=== PATIENT | male | born 1935 | race Caucasian/White ===

== ENCOUNTER → 2020-01-31 09:12 | Outpatient (BNVA) | payer MEDICARE, OTHER, SELFPAY | PROVIDERS: Family Provider Family Medicine; PCP Family Medicine; Visit Provider Family Medicine | DX: E03.9 Hypothyroidism, unspecified (principal); I48.91 Unspecified atrial fibrillation; Z13.6 Encounter for screening for cardiovascular disorders | CPT/HCPCS: 80053; 80061; 84443; 85025; 85610 ==

== ENCOUNTER → 2020-11-26 09:41 | Outpatient (BNVA) | payer MEDICARE, OTHER, SELFPAY | PROVIDERS: Family Provider Family Medicine; PCP Family Medicine; Referring Provider Dermatology; Visit Provider Podiatrist Foot & Ankle Surgery | DX: M79.671 Pain in right foot (principal); M20.41 Other hammer toe(s) (acquired), right foot | CPT/HCPCS: 73630 ==

== ENCOUNTER → 2020-12-31 15:13 | Outpatient (BNVA) | payer MEDICARE, OTHER, SELFPAY | PROVIDERS: Family Provider Family Medicine; PCP Family Medicine; Visit Provider Family Medicine | DX: E03.9 Hypothyroidism, unspecified (principal); I48.91 Unspecified atrial fibrillation; N40.0 Benign prostatic hyperplasia without lower urinary tract symptoms; Z13.6 Encounter for screening for cardiovascular disorders | CPT/HCPCS: 80053; 80061; 84153; 84443; 85025 ==

== ENCOUNTER → 2021-01-23 14:42 | Outpatient (BNVA) | payer MEDICARE, OTHER, SELFPAY | PROVIDERS: Family Provider Family Medicine; PCP Family Medicine; Visit Provider Family Medicine | DX: I48.91 Unspecified atrial fibrillation (principal) | CPT/HCPCS: 85610 ==

== ENCOUNTER → 2021-03-05 08:32 | Outpatient (BNVA) | payer MEDICARE, SELFPAY | PROVIDERS: Family Provider Family Medicine; PCP Family Medicine; Visit Provider Urology | DX: N40.0 Benign prostatic hyperplasia without lower urinary tract symptoms (principal) | CPT/HCPCS: 81003 ==

== ENCOUNTER → 2021-03-08 14:23 | Outpatient (BNVA) | payer MEDICARE, SELFPAY | PROVIDERS: Family Provider Family Medicine; PCP Family Medicine; Visit Provider Family Medicine | DX: I48.91 Unspecified atrial fibrillation (principal) | CPT/HCPCS: 85610 ==

== ENCOUNTER → 2021-06-04 15:08 | Outpatient (BNVA) | payer MEDICARE, SELFPAY | PROVIDERS: Family Provider Family Medicine; PCP Family Medicine; Visit Provider Internal Medicine Cardiovascular Disease | DX: I48.91 Unspecified atrial fibrillation (principal); R06.02 Shortness of breath; E03.9 Hypothyroidism, unspecified; N40.0 Benign prostatic hyperplasia without lower urinary tract symptoms; I87.2 Venous insufficiency (chronic) (peripheral); Z79.01 Long term (current) use of anticoagulants; Z79.82 Long term (current) use of aspirin; I45.10 Unspecified right bundle-branch block | CPT/HCPCS: 93005; 99214 ==

== ENCOUNTER 2021-08-13 06:48 | Outpatient (CLI) | payer MEDICARE, SELFPAY ==
[2021-08-13 07:56] VITALS: BMI 32.1
--- NOTE | 2021-08-13 07:58 | ECG_ITS ---
[facility] Test Date: 2021-08-13 Pat Name: Kwame So Department: Room: Gender: Male Work From Home: Shy Nicole : 1935 Requested By: America Ch Order Number: [id number] Nohemi MD: Ezra Salazar M.D. Interpretive Statements NAME OF STUDY: EXERCISE SESTAMIBI STRESS TEST INDICATION: Chest Pain, PROCEDURE: The baseline electrocardiogram showed [normal sinus rhythm with right bundle branch block. Some nonspecific ST-T changes. At the baseline, the patient's blood pressure was 146/67 mm Hg with a heart rate of 99. The patient exercised for 4 minutes and 14 seconds on a standard Yusuf protocol. Patient attained a maximum heart rate of 137 beats per minute(91 % of the maximum predicted heart rate) with a blood pressure at the peak exercise of 110/89 mm Hg. The EKG at the peak exercise revealed no significant changes. Patient did not have any chest pain or any significant arrhythmis with the exercise Sestamibi was injected 1 minute prior to the peak exercise During the recovery phase, there were no new changes. Blood pressure at the end of the recovery phase was 146/84 mm Hg with a heart rate of 90 per minute. CONCLUSION: 1. No significant EKG changes with the [treadmill exercise 2. No exercise-induced chest pain or cardiac arrhythmia 3. Impaired exercise tolerance, attained a maximum of 6.6 METs 4. Sestamibi/Sestamibi perfusion results pending; see separate report. Electronically Signed On 08-16-2021 11:31:55 CDT by Ezra Salazar M.D. [email or web address]
--- NOTE | 2021-08-13 07:59 | NMCV_ITS ---
NM tanisha perf SPECT r/s* [id number] Kwame So Age: 85 Gender: M : 1935 Exam Date: 08/13/2021 08:21 Ordering Phys: America Ch MD ([email or web address]) Technologist: EMILY Shane Exam Location: [facility] Indications: CHEST PAIN STRESS TEST Please see separate stress test report in [facility] for full findings IMAGE PROTOCOL Rest/Stress 1 Exercise Day Radiopharmaceutical Dose (mCi) Administration Site Administered by Rest: Tc-99m 10.9 IV EMILY Shane Sestamibi Stress:Tc-99m 33.0 IV EMILY Shane Sestamibi Rest: 13-Aug-2021 60 Discovery 630 Stress: 13-Aug-2021 30 Discovery 630 Images obtained in supine and prone position.Radiopharmaceutical was injected at 85 % maximum heart rate. SPECT RESULTS Technical Quality: Excellent Raw Data Analysis: Normal Image Corrections: No attenuation or motion correction applied Summed Stress Score: 2 Summed Rest Score: 3 Summed Difference Score: 1 PERFUSION FINDINGS Small size perfusion abnormality of mild severity of apical lateral wall on rest images with reversibility in mid inferolateral apical lateral and apical garsia on supine stress images. Prone images with improved tracer uptake in inferolateral and apical garsia. This is suggestive of attenuation artifact. FUNCTIONAL RESULTS (calculated via Gated SPECT) Stress Image LV EF (%): 81 Stress EDV (mL):77 TID: 0.96 Stress ESV (mL):15 FUNCTIONAL FINDINGS: The left ventricle is normal in size. Transient Ischemia Dilatation of 0.96. The left ventricular ejection fraction is normal with a value of 81%. There is normal left ventricular wall thickening. IMPRESSIONS 1. Myocardial perfusion imaging is normal. Diaphragmatic attenuation artifact noted in mid inferolateral and apical lateral garsia. 2. Overall left ventricular systolic function is normal without regional wall motion abnormalities, LVEF=81%. 3. EKG portion of the study will be reported separately. 4. Scan indicates low risk for cardiac events. America Ch MD (Electronically Signed) Final Date: 15 August 2021 09:55 S
[2021-08-13 10:29] VITALS: BP 146/84; PULSE 90
== END 2021-08-13 06:49 | disposition home or self-care (01) ==
LOC: CDL 06:56
PROVIDERS: Family Provider Family Medicine; PCP Family Medicine; Visit Provider Internal Medicine Cardiovascular Disease
DX: R07.9 Chest pain, unspecified (principal)
CPT/HCPCS: 78452; 93017; A9500

== ENCOUNTER 2021-10-17 12:19 | Outpatient (CLI) | payer MEDICARE, SELFPAY ==
--- NOTE | 2021-10-17 12:33 | XR_ITS ---
WS: [id number] Right knee, 3 views, 10/17/2021 Clinical Data: acute knee pain Comparison: None. Findings: No fractures or dislocations are seen. The joint spaces are normal. The patella is intact. The soft t issues are unremarkable. XR/XR knee RT 3V* [id number] Impression: Negative right knee. Kellgren-John Classification: grade 0 (none): definite absence of x-ray lino nges of osteoarthritis
== END 2021-10-17 12:20 | disposition home or self-care (01) ==
LOC: RAD 12:24
PROVIDERS: PCP Family Medicine; Visit Provider Family Medicine
DX: M25.561 Pain in right knee (principal)
CPT/HCPCS: 73562

== ENCOUNTER → 2021-10-30 14:00 | Outpatient (BNVA) | payer MEDICARE, SELFPAY | PROVIDERS: PCP Family Medicine; Visit Provider Family Medicine | DX: I48.20 Chronic atrial fibrillation, unspecified (principal) | CPT/HCPCS: 85610 ==

== ENCOUNTER → 2021-12-09 14:35 | Outpatient (BNVA) | payer MEDICARE, SELFPAY | PROVIDERS: PCP Family Medicine; Visit Provider Internal Medicine Cardiovascular Disease | DX: I48.91 Unspecified atrial fibrillation (principal); Z79.01 Long term (current) use of anticoagulants | CPT/HCPCS: 99213; 99214 ==

== ENCOUNTER → 2022-07-18 10:39 | Outpatient (BNVA) | payer MEDICARE, SELFPAY | PROVIDERS: PCP Family Medicine; Visit Provider Family Medicine | DX: I48.91 Unspecified atrial fibrillation (principal) | CPT/HCPCS: 85610 ==

== ENCOUNTER → 2022-08-12 14:55 | Outpatient (BNVA) | payer MEDICARE, SELFPAY | PROVIDERS: PCP Family Medicine; Visit Provider Surgery | DX: Z86.010 Personal history of colon polyps (principal); K92.1 Melena | CPT/HCPCS: 99203 ==

== ENCOUNTER 2022-09-10 08:59 | Day surgery (SDC) | payer MEDICARE, SELFPAY ==
[2022-09-09 14:14] VITALS: BMI 30.8
[2022-09-10 09:33] VITALS: BP 167/83; PULSE 75; RESP 18; TEMP 36.3; O2SAT 96
[2022-09-10] MEDS: sodium chloride 0.9% 1,000 ML 30 ML IV (09:35)
--- NOTE | 2022-09-10 10:49 | ANES.PREANE2 ---
Pre-Anesthetic Assessment Height/Weight: Height 1.88 m Weight 108.862 kg Temp Pulse Resp BP Pulse Ox O2 Del Method 97.3 F L 75 18 167/83 96 Room Air 09/10/22 09:33 09/10/22 09:33 09/10/22 09:33 09/10/22 09:33 09/10/22 09:33 09/10/22 09:33 Preop Diagnosis: Hematochezia, Hx of colon polyps Operation Date: 09/10/22 10:30 Proposed Procedures p Colonoscopy 99619,Z86.010 , K92.1(Not Applicable) - Delta Saini DO Familial anesthetic complications: none Last intake: Intake Last Liquid Date 09/09/22 Last Liquid Time 23:30 Last Solid Date 09/08/22 Last Solid Time 17:00 Social No alcohol and No tobacco Exam alert, oriented x 3 and clear to auscultation bilaterally Airway Submandibular: within normal limits Cervical ROM: within normal limits Mallampati: Class I Dentition: full Pulmonary None reported CV/HEM Atrial Fibrillation and Hypertension None reported Hepatic None reported GI Gastroesophageal Reflux Disease Metabolic Morbid Obesity [facility] None reported Neuropsych None reported Anesthetic Plan ASA status: 3 Medications/Allergies Home Medications Medication Instructions Recorded Confirmed Last Taken Type ascorbic acid (vitamin C) 500 mg 500 mg PO DAILY 04/13/19 09/09/22 09/09/22 History capsule aspirin 81 mg tablet,delayed 81 mg PO DAILY 04/13/19 09/09/22 09/09/22 History release (Adult Low Dose Aspirin) folic acid 800 mcg tablet 0.8 mg PO DAILY 04/13/19 09/09/22 09/09/22 History lutein 20 mg capsule 20 mg PO DAILY 04/13/19 09/09/22 09/09/22 History multivitamin 1 tab PO DAILY 04/13/19 09/09/22 09/09/22 History omega-3 fatty acids 1,000 mg 1,000 mg PO DAILY 04/13/19 09/09/22 09/09/22 History capsule (Fish Oil Concentrate) biotin 5,000 mcg disintegrating 10,000 mcg PO DAILY 03/05/21 09/09/22 09/09/22 History tablet warfarin 4 mg tablet 4 mg PO DAILY #90 tabs 10/30/21 09/09/22 09/04/22 Rx digoxin 125 mcg (0.125 mg) tablet 125 mcg PO DAILY #90 tabs 01/20/22 09/09/22 09/09/22 Rx metoprolol succinate 25 mg 25 mg PO DAILY #90 tabs 02/04/22 09/09/22 09/09/22 Rx tablet,extended release 24 hr levothyroxine 25 mcg tablet 25 mcg PO DAILY #90 tabs 06/27/22 09/09/22 09/09/22 Rx terazosin 5 mg capsule 5 mg PO DAILY 09/09/22 09/09/22 09/09/22 History Allergies Allergy/AdvReac Type Severity Reaction Status Date / Time No Known Allergies Allergy Verified 07/18/22 08:15 Current Medications Generic Name Dose Route Start Last Admin Trade Name Yuryq PRN Reason Stop Dose Admin Sodium Chloride 1,000 mls @ 30 mls/hr 09/10/22 09:15 09/10/22 09:35 Sodium Chloride 0.9% IV 09/11/22 09:14 30 mls/hr .Q24H REYNALDO Administration PFSH Anesthesia Medical History Atrial fibrillation Hypothyroidism Venous reflux Surgical History History of prostate surgery tumor removal S/P appendectomy S/P cataract surgery bilateral S/P cholecystectomy S/P correction of deviated nasal septum S/P hammer toe correction right foot S/P hip replacement bilateral S/P skin biopsy S/P tonsillectomy Family History Mother , in her 90's Stroke Father , in his 90's Pneumonia Social History Smoking and tobacco status: never smoked Alcohol intake: current Alcohol intake frequency: holidays/special occasions only Marital status: Current occupational status: retired Data Anesthesia Cardiac Studies: Sestamibi Stress Test (Cardiology) 08/13/21
--- NOTE | 2022-09-10 11:35 | W.PM.OPSUD ---
Surgery/Procedure H&P Update DATE OF PROCEDURE: September 10, 2022 DATE H&P PERFORMED: 08/12/22 H&P UPDATE INFORMATION: I have reviewed H&P completed within last 30 days, I have examined patient prior to procedure and No changes to prior documentation PREOP DIAGNOSIS: Hematochezia, Hx of colon polyps PLANNED PROCEDURE: Operation Date: 09/10/22 10:30 Proposed Procedures p Colonoscopy 38827,Z86.010 , K92.1(Not Applicable) - Delta Saini DO
[2022-09-10 12:00] VITALS: BP 118/70; PULSE 61; RESP 20; TEMP 36.1; O2SAT 93
[2022-09-10 12:10] VITALS: BP 120/75; PULSE 60; RESP 20; O2SAT 96
[2022-09-10 12:18] VITALS: BP 158/93; PULSE 68; RESP 20; O2SAT 96
--- NOTE | 2022-09-10 14:58 | ANE.PACU2 ---
Inpatient post-anesthesia follow up: Airway intact: Yes Vital signs: Temperature 97.0 F Pulse Rate 68 Respiratory Rate 20 Blood Pressure 158/93 Pulse Oximetry 96 Oxygen Delivery Me thod Room Air Oxygen Flow Rate 4 Fraction of Inspir ed Oxygen Hydration adequate: Yes Nausea and vomiting: No Pain level: 2 Mental status: Baseline
== END 2022-09-10 12:41 | disposition home or self-care (01) ==
PROVIDERS: PCP Family Medicine; Visit Provider Surgery
PROC: 0DJD8ZZ Inspection of Lower Intestinal Tract, Via Natural or Artificial Opening Endoscopic (ICD-10-PCS; CPT 45378; principal; 2022-09-10 10:30)
DX: K92.1 Melena (principal); Z86.010 Personal history of colon polyps; I48.91 Unspecified atrial fibrillation; I10 Essential (primary) hypertension; K21.9 Gastro-esophageal reflux disease without esophagitis; Z79.82 Long term (current) use of aspirin; Z79.01 Long term (current) use of anticoagulants; E03.9 Hypothyroidism, unspecified; K57.30 Diverticulosis of large intestine without perforation or abscess without bleeding
CPT/HCPCS: 45378; J2704; J7030

== ENCOUNTER → 2022-10-30 09:15 | Outpatient (BNVA) | payer MEDICARE, SELFPAY | PROVIDERS: PCP Family Medicine; Visit Provider Nurse Practitioner Family | DX: L57.0 Actinic keratosis (principal); L82.0 Inflamed seborrheic keratosis; L81.4 Other melanin hyperpigmentation; D22.5 Melanocytic nevi of trunk; L85.3 Xerosis cutis; L57.8 Other skin changes due to chronic exposure to nonionizing radiation; L92.0 Granuloma annulare; S30.861A Insect bite (nonvenomous) of abdominal wall, initial encounter; L82.1 Other seborrheic keratosis; Y99.9 Unspecified external cause status | CPT/HCPCS: 17000; 17003; 17110; 99214 ==

== ENCOUNTER → 2022-12-08 13:48 | Outpatient (BNVA) | payer MEDICARE, SELFPAY | PROVIDERS: PCP Family Medicine; Visit Provider Internal Medicine Cardiovascular Disease | DX: I48.11 Longstanding persistent atrial fibrillation (principal); Z79.01 Long term (current) use of anticoagulants | CPT/HCPCS: 85610; 99214 ==

== ENCOUNTER → 2023-01-21 09:28 | Outpatient (BNVA) | payer MEDICARE, SELFPAY | PROVIDERS: PCP Family Medicine; Visit Provider Nurse Practitioner Family | DX: L57.8 Other skin changes due to chronic exposure to nonionizing radiation (principal); L81.4 Other melanin hyperpigmentation; D22.62 Melanocytic nevi of left upper limb, including shoulder; L82.0 Inflamed seborrheic keratosis | CPT/HCPCS: 17110; 99213 ==

== ENCOUNTER → 2023-03-19 15:14 | Outpatient (BNVA) | payer MEDICARE, SELFPAY | PROVIDERS: PCP Family Medicine; Visit Provider Family Medicine | DX: Z13.6 Encounter for screening for cardiovascular disorders (principal); E03.9 Hypothyroidism, unspecified; I48.11 Longstanding persistent atrial fibrillation; Z11.59 Encounter for screening for other viral diseases; N40.0 Benign prostatic hyperplasia without lower urinary tract symptoms | CPT/HCPCS: 80053; 80061; 84443; 85025; 85610; 86803 ==

== ENCOUNTER → 2023-07-16 09:54 | Outpatient (BNVA) | payer MEDICARE, SELFPAY | PROVIDERS: PCP Family Medicine; Visit Provider Nurse Practitioner Family | DX: L57.0 Actinic keratosis (principal); L57.8 Other skin changes due to chronic exposure to nonionizing radiation; L81.4 Other melanin hyperpigmentation; D22.62 Melanocytic nevi of left upper limb, including shoulder; L82.0 Inflamed seborrheic keratosis | CPT/HCPCS: 17000; 17110; 99213 ==

== ENCOUNTER 2023-11-16 10:27 | Outpatient (CLI) | payer MEDICARE, SELFPAY ==
--- NOTE | 2023-11-16 10:39 | XRR_ITS ---
PROCEDURE INFORMATION: Exam: XR Left Shoulder Exam date and time: 11/16/2023 10:44 AM Age: 87 years old Clinical indication: Left; Patient HX: --pain lt shoulder, HX of dislocations; Additional info: Left shoulder pain TECHNIQUE: Imaging protocol: Radiologic exam of the left shoulder. Views: 2 or more views. COMPARISON: No relevant prior studies available. FINDINGS: Bones/joints: Glenohumeral and acromioclavicular alignment is normal. There is severe glenohumeral joint space narrowing with bulky inferior humeral and glenoid osteophytes. There is a 2.7 x 1.2 cm focus of peripherally sclerotic bone along the inferior margin of the large humeral osteophyte. The AC joint is unremarkable. No acute fracture. There is remodeling of the humeral head and glenoid with mild flattening of the articular surfaces. Soft tissues: Visible soft tissues are unremarkable. XR/XR shoulder LT min 2V* [id number] IMPRESSION: 1. No acute findings. 2. Severe glenohumeral osteoarthritis. 3. 2.7 x 1.5 cm osseous body inferior to a large humeral osteophyte. Heterotopic ossification in the soft tissues versus osteochondral intra-articular loose body.
[2023-11-16 11:44] LABS: INR 2.29 (0.8-1.2)
[2023-11-16 12:01] LABS: Free T4 Free Thyroxine 1.28 ng/dL (0.82-1.77); Thyroid Stimulating Hormone 5.95 uIU/mL (0.27-4.20)
== END 2023-11-16 10:28 | disposition home or self-care (01) ==
PROVIDERS: PCP Family Medicine; Visit Provider Pediatrics
DX: E03.9 Hypothyroidism, unspecified (principal); I48.11 Longstanding persistent atrial fibrillation; M19.012 Primary osteoarthritis, left shoulder; M25.712 Osteophyte, left shoulder
CPT/HCPCS: 36415; 73030; 84439; 84443; 85610

== ENCOUNTER → 2023-11-25 14:16 | Outpatient (BNVA) | payer MEDICARE, SELFPAY | PROVIDERS: PCP Family Medicine; Visit Provider Specialist | DX: M19.012 Primary osteoarthritis, left shoulder (principal) | CPT/HCPCS: 20610; 99204 ==

== ENCOUNTER → 2023-12-17 16:17 | Outpatient (BNVA) | payer MEDICARE, SELFPAY | PROVIDERS: PCP Family Medicine; Visit Provider Internal Medicine Cardiovascular Disease | DX: I48.11 Longstanding persistent atrial fibrillation (principal); I87.2 Venous insufficiency (chronic) (peripheral); Z79.4 Long term (current) use of insulin | CPT/HCPCS: 99204 ==

== ENCOUNTER → 2024-01-18 10:09 | Outpatient (BNVA) | payer MEDICARE, SELFPAY | PROVIDERS: PCP Family Medicine; Visit Provider Nurse Practitioner Family | DX: D23.39 Other benign neoplasm of skin of other parts of face (principal); L81.4 Other melanin hyperpigmentation; L57.8 Other skin changes due to chronic exposure to nonionizing radiation; L21.8 Other seborrheic dermatitis; S60.562A Insect bite (nonvenomous) of left hand, initial encounter; X58.XXXA Exposure to other specified factors, initial encounter; L57.0 Actinic keratosis | CPT/HCPCS: 17000; 99214 ==

== ENCOUNTER → 2024-02-26 11:59 | Outpatient (BNVA) | payer MEDICARE, SELFPAY | DX: I48.11 Longstanding persistent atrial fibrillation (principal) | CPT/HCPCS: 85610 ==

== ENCOUNTER → 2024-04-15 10:22 | Outpatient (BNVA) | payer MEDICARE, SELFPAY | PROVIDERS: Visit Provider Specialist | DX: M19.012 Primary osteoarthritis, left shoulder (principal); Z71.89 Other specified counseling | CPT/HCPCS: 20610; J1100; J2795; J3301 ==

== ENCOUNTER → 2024-05-03 13:27 | Outpatient (BNVA) | payer MEDICARE, SELFPAY | PROVIDERS: Visit Provider Family Medicine | DX: I48.11 Longstanding persistent atrial fibrillation (principal); E03.9 Hypothyroidism, unspecified; Z13.6 Encounter for screening for cardiovascular disorders | CPT/HCPCS: 80053; 80061; 83036; 84439; 84443; 85025 ==

== ENCOUNTER → 2024-06-01 10:45 | Outpatient (BNVA) | payer MEDICARE, SELFPAY | DX: I48.11 Longstanding persistent atrial fibrillation (principal) | CPT/HCPCS: 85610 ==

== ENCOUNTER → 2024-07-15 08:40 | Outpatient (BNVA) | payer MEDICARE, SELFPAY | PROVIDERS: PCP Family Medicine; Visit Provider Specialist | DX: M19.012 Primary osteoarthritis, left shoulder (principal) | CPT/HCPCS: 20610; J1100; J2795; J3301; J9999 ==

== ENCOUNTER → 2024-08-01 11:30 | Outpatient (BNVA) | payer MEDICARE, SELFPAY | PROVIDERS: PCP Family Medicine; Visit Provider Family Medicine | DX: I48.11 Longstanding persistent atrial fibrillation (principal); E11.9 Type 2 diabetes mellitus without complications; I48.91 Unspecified atrial fibrillation; E03.9 Hypothyroidism, unspecified | CPT/HCPCS: 80053; 83036; 85610 ==

== ENCOUNTER → 2024-08-11 11:55 | Outpatient (BNVA) | payer MEDICARE, SELFPAY | PROVIDERS: PCP Family Medicine; Visit Provider Family Medicine | DX: I48.11 Longstanding persistent atrial fibrillation (principal); I48.91 Unspecified atrial fibrillation | CPT/HCPCS: 85610 ==

== ENCOUNTER 2024-08-15 09:53 | Outpatient (CLI) | payer MEDICARE, SELFPAY ==
--- NOTE | 2024-08-15 10:00 | US_ITS ---
WS: [id number] RIGHT UPPER QUADRANT ULTRASOUND HISTORY: Elevated bilirubin COMPARISON: None available. Liver: 15.3 cm in length. Normal size liver with hepatic steatosis. No mass identified. The entire liver is not well visualized. Portal Vein: Normal hepatopetal flow with monophasic waveform. Gallbladder: Prior cholecystectomy. CBD: 0.3 cm Pancreas: Completely obscured. Right kidney: 11.7 cm in length. No obstruction. Several cortical cysts. The largest measures 6.3 x 6.4 x 5.1 cm. Exact location cannot be determined by imaging submitted. No solid mass. Aorta and IVC: Unremarkable abdominal aorta and IVC. No ascites. US/US abdomen limited [id number] IMPRESSION: 1. Prior cholecystectomy. 2. No hepatobiliary duct dilatation. 3. RIGHT renal cysts. The largest measures 6.3 x 6.4 x 5.1 cm. 4. Completely obscured pancreas. 5. Mild hepatic steatosis.
== END 2024-08-15 09:54 | disposition home or self-care (01) ==
LOC: RAD 09:54
PROVIDERS: PCP Family Medicine; Visit Provider Family Medicine
DX: R17 Unspecified jaundice (principal); Z90.49 Acquired absence of other specified parts of digestive tract; N28.1 Cyst of kidney, acquired; R93.2 Abnormal findings on diagnostic imaging of liver and biliary tract
CPT/HCPCS: 76705

== ENCOUNTER → 2024-10-21 08:41 | Outpatient (BNVA) | payer MEDICARE, SELFPAY | PROVIDERS: PCP Family Medicine; Visit Provider Specialist | DX: M19.012 Primary osteoarthritis, left shoulder (principal) | CPT/HCPCS: 20610; 99212; J1100; J2795; J3301; J9999 ==

== ENCOUNTER → 2024-10-27 11:47 | Outpatient (BNVA) | payer MEDICARE, SELFPAY | PROVIDERS: PCP Family Medicine; Visit Provider Family Medicine | DX: Z13.6 Encounter for screening for cardiovascular disorders (principal); I48.11 Longstanding persistent atrial fibrillation; R17 Unspecified jaundice; I48.91 Unspecified atrial fibrillation | CPT/HCPCS: 80053; 85025; 85610 ==

== ENCOUNTER 2024-11-03 08:50 | Outpatient (CLI) | payer MEDICARE, SELFPAY ==
--- NOTE | 2024-11-03 09:30 | MR_ITS ---
WS: [id number] MRCP (MAGNETIC RESONANCE CHOLANGIOPANCREATOGRAPHY) HISTORY: elevated bili, jaundice COMPARISON: Ultrasound 08/15/2024 TECHNIQUE: Multiple sequences are performed to evaluate the intra and extrahepatic ducts. Mild cardiomegaly. No pleural effusions. Liver is normal size. No intrahepatic duct dilatation. Normal common bile duct at 3.6 mm. There is no beading or irregularity or stricture identified. Normal tapering towards the ampulla of Vater. Pancreatic duct is small caliber. Pancreatic duct enters normally. No intrahepatic strictures. No cystic dilatation of the common bile duct. Gallbladder has been surgically removed. There is mild diffuse hepatic steatosis. Spleen is normal size. Numerous cysts in the RIGHT kidney. The largest posteriorly measures 6.7 x 6.7 cm. There is no solid mass or obstruction. Very tiny cortical cyst LEFT kidney with no solid mass identified. No aortic aneurysm. No ascites or adenopathy. Mild atrophy of the pancreas. Pancreatic head is not very well visualized. No adrenal mass. MR/MR MRCP [id number] IMPRESSION: 1. Normal size of the intrahepatic and extrahepatic common bile duct. No stric tures or wall thickening identified. 2. Small caliber pancreatic duct. 3. Prior cholecystectomy. 4. Hepatic steatosis. 5. Bilateral renal cysts.
== END 2024-11-03 08:51 | disposition home or self-care (01) ==
LOC: RAD 08:51
PROVIDERS: PCP Family Medicine; Visit Provider Family Medicine
DX: R17 Unspecified jaundice (principal)
CPT/HCPCS: 74181

== ENCOUNTER → 2024-12-05 11:41 | Outpatient (BNVA) | payer MEDICARE, SELFPAY | PROVIDERS: PCP Family Medicine; Visit Provider Family Medicine | DX: R17 Unspecified jaundice (principal); E03.9 Hypothyroidism, unspecified; I48.91 Unspecified atrial fibrillation; I48.11 Longstanding persistent atrial fibrillation | CPT/HCPCS: 80053; 84439; 84443; 85610 ==

== ENCOUNTER → 2024-12-13 12:12 | Outpatient (BNVA) | payer MEDICARE, SELFPAY | PROVIDERS: PCP Family Medicine; Visit Provider Internal Medicine Cardiovascular Disease | DX: I48.20 Chronic atrial fibrillation, unspecified (principal); Z79.01 Long term (current) use of anticoagulants; Z79.82 Long term (current) use of aspirin; I87.2 Venous insufficiency (chronic) (peripheral) | CPT/HCPCS: 99214 ==

== ENCOUNTER → 2025-01-27 10:00 | Outpatient (BNVA) | payer MEDICARE, SELFPAY | PROVIDERS: PCP Family Medicine; Visit Provider Specialist | DX: M19.012 Primary osteoarthritis, left shoulder (principal); R22.30 Localized swelling, mass and lump, unspecified upper limb | CPT/HCPCS: 99213 ==

== ENCOUNTER 2025-02-14 08:34 | Outpatient (CLI) | payer MEDICARE, SELFPAY ==
--- NOTE | 2025-02-14 08:45 | MRR_ITS ---
PROCEDURE INFORMATION: Exam: MR Left Upper Extremity Joint Without Contrast; Shoulder Exam date and time: 02/14/2025 8:57 AM Age: 89 years old Clinical indication: Chronic left shoulder pain/now has a lump in the anterior aspect of his left shoulder; Additional info: R22.30 - localized swelling, mass and lump, unspecified u. . . TECHNIQUE: Imaging protocol: Magnetic resonance imaging of the left upper extremity without contrast. Exam focused on the shoulder. 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 There is advanced glenohumeral osteoarthritis. There is a type 2, curved acromial process. There is moderate osteoarthritis of the AC joint. There is a small joint effusion. Glenoid labrum: Likely chronic tearing of the inferior glenoid labrum extending from the 3 to 9 o'clock positions. Supraspinatus tendon: Thickening and increased signal of the supraspinatus tendon consistent with tendinopathy. Mild partial-thickness interstitial tearing of the supraspinatus tendon. Infraspinatus tendon: The infraspinatus tendon is unremarkable. No evidence of tear. Subscapularis tendon: Tendinopathy of the subscapularis tendon. Teres minor tendon: The teres minor tendon is unremarkable. No evidence of tear. Tendon of biceps brachii: The long bicipital tendon is unremarkable. Glenohumeral ligaments: Unremarkable. Soft tissues: Subdeltoid benign-appearing lipoma, anterior shoulder, series 2, image 15 measuring 3.9 x 5.0 x 3.4 cm. MR/MR shoulder LT wo con* [id number] IMPRESSION: 1. Tendinopathy and mild partial-thickness interstitial tearing of the supraspinatus tendon. 2. Tendinopathy of the subscapularis tendon. 3. Subdeltoid benign-appearing lipoma, anterior shoulder, series 2, image 15 measuring 3.9 x 5.0 x 3.4 cm. 4. Chronic tearing of the inferior glenoid labrum extending from the 3 to 9 o'clock positions.
== END 2025-02-14 08:35 | disposition home or self-care (01) ==
LOC: RAD 08:36
PROVIDERS: PCP Family Medicine; Visit Provider Specialist
DX: R22.30 Localized swelling, mass and lump, unspecified upper limb (principal); M19.012 Primary osteoarthritis, left shoulder; M75.82 Other shoulder lesions, left shoulder; D17.22 Benign lipomatous neoplasm of skin and subcutaneous tissue of left arm; M75.122 Complete rotator cuff tear or rupture of left shoulder, not specified as traumatic
CPT/HCPCS: 73221